=== PATIENT | male | born 1960 | race Caucasian/White ===

== ENCOUNTER 2017-10-26 01:24 | Day surgery (SDC) | payer OTHER ==
[~2017-10-26] VITALS: Ht 213.4 cm; Wt 91.0 kg
[~2017-10-26 01:24] MED LIST: AMLO5 PO; ASCO500; ASPI81EC PO; ATOR40TA PO; ATOR80 PO; CLOP75 PO; Co Q-10100 MG; DULO60; Ferrous Sulfat325 M2; Fish Oil 10001000 MG; GABA300 PO; Hydrocodone-Ap1 EA20 PO; LEVSOD50 PO; LOSARTAN POTAS100 MG PO; METO25ER PO; MULVITB; Magnesium500 MG; NITR.6SL SL; NORT25 PO; Naproxen250 MG; Pentasa500 MG; SF56 GM; TRAM50; VITAMIN D3400 UNIT; ZOLP5 PO; [UNRECOGNIZED DRUG - OTHER]
[2017-10-26] MEDS ORDERED: ISOMON20 PO (09:19)
== END 2017-10-26 11:15 | disposition home or self-care (01) ==
LOC: MHTC 01:24
PROC: 4A023N7 Measurement of Cardiac Sampling and Pressure, Left Heart, Percutaneous Approach (ICD-10-PCS; principal; 2017-10-26)
PROC: B211YZZ Fluoroscopy of Multiple Coronary Arteries using Other Contrast (ICD-10-PCS; principal; 2017-10-26)
DX: I25.119 Atherosclerotic heart disease of native coronary artery with unspecified angina pectoris (principal); E66.9 Obesity, unspecified; E78.00 Pure hypercholesterolemia, unspecified; E78.5 Hyperlipidemia, unspecified
CPT/HCPCS: 93454; 99152; 99153; C1769; C1894; J1644; J2250; J3010; J7030; Q9967

== ENCOUNTER 2018-10-19 09:10 | Day surgery (SDC) | payer OTHER ==
[~2018-10-19] VITALS: Ht 185.4 cm; Wt 193.6 kg
[~2018-10-19 09:10] MED LIST changes: +Coq-10100 MG PO; +DULO60 PO; +ERGO400 PO; +FER-IN-SOL15 MG/1 ML PO; +FOLI400 PO; +ISOMON20 PO; +Isosorbide Mono30 MG PO; +LO-DOSE ASPIRIN81 MG PO; +Lopressor 25 mg25 MG PO; +Magnesium500 M1 PO; +NAPR500EC PO; +Neurontin300 MG PO; +Nitrostat0.4 MG SL; +Norco 10-325 T1 EACH PO; +Nortriptyline H25 MG PO; +Omega 3 1,0001 EACH PO; +Oyster Shell C500 MG PO; +Pentasa500 MG PO; +Synthroid50 MCG PO; +TRAM50 PO; +VITAMIN C500 MG PO
--- NOTE | 2018-10-19 11:40 | NUR ---
10/19/18 1140 Xiomara Toribio GROUNDING PAD PLACED BUT NEVER USED.
== END 2018-10-19 12:06 | disposition home or self-care (01) ==
LOC: ORSCSDS 09:10
PROVIDERS: Internal Medicine Gastroenterology
PROC: 0DBE8ZX Excision of Large Intestine, Via Natural or Artificial Opening Endoscopic, Diagnostic (ICD-10-PCS; principal; 2018-10-19 10:30)
PROC: 0DBL8ZX Excision of Transverse Colon, Via Natural or Artificial Opening Endoscopic, Diagnostic (ICD-10-PCS; principal; 2018-10-19 10:30)
DX: K51.90 Ulcerative colitis, unspecified, without complications (principal); D12.3 Benign neoplasm of transverse colon; K62.89 Other specified diseases of anus and rectum; I10 Essential (primary) hypertension; F17.210 Nicotine dependence, cigarettes, uncomplicated; Z79.899 Other long term (current) drug therapy; Z79.82 Long term (current) use of aspirin
CPT/HCPCS: 88305; J2704; J7120

== ENCOUNTER 2020-07-17 09:42 | Day surgery (SDC) | payer OTHER ==
[~2020-07-17] VITALS: Ht 185.4 cm; Wt 102.6 kg
== END 2020-07-17 11:50 | disposition home or self-care (01) ==
LOC: ORSCSDS 09:42
PROVIDERS: Internal Medicine Gastroenterology
PROC: 0DBE8ZX Excision of Large Intestine, Via Natural or Artificial Opening Endoscopic, Diagnostic (ICD-10-PCS; principal; 2020-07-17 11:00)
DX: K51.90 Ulcerative colitis, unspecified, without complications (principal); Z86.010 Personal history of colon polyps; K63.5 Polyp of colon; K64.1 Second degree hemorrhoids; F17.210 Nicotine dependence, cigarettes, uncomplicated; G47.33 Obstructive sleep apnea (adult) (pediatric); I10 Essential (primary) hypertension; E78.5 Hyperlipidemia, unspecified; E03.9 Hypothyroidism, unspecified; Z79.899 Other long term (current) drug therapy
CPT/HCPCS: 88305; J2704; J7120

== ENCOUNTER 2021-10-08 10:31 | Day surgery (SDC) | payer OTHER ==
[~2021-10-08] VITALS: Ht 182.9 cm; Wt 102.2 kg
[~2021-10-08 10:31] MED LIST changes: +BACL10 PO; +Crestor40 MG PO; +DOXE10 PO; +LIDO700A20 TOP
== END 2021-10-08 12:53 | disposition home or self-care (01) ==
LOC: ORSCSDS 10:31
PROVIDERS: Internal Medicine Gastroenterology
PROC: 0DBN8ZX Excision of Sigmoid Colon, Via Natural or Artificial Opening Endoscopic, Diagnostic (ICD-10-PCS; principal; 2021-10-08 12:00)
PROC: 0DBL8ZX Excision of Transverse Colon, Via Natural or Artificial Opening Endoscopic, Diagnostic (ICD-10-PCS; principal; 2021-10-08 12:00)
PROC: 0DBM8ZX Excision of Descending Colon, Via Natural or Artificial Opening Endoscopic, Diagnostic (ICD-10-PCS; principal; 2021-10-08 12:00)
PROC: 0DBK8ZX Excision of Ascending Colon, Via Natural or Artificial Opening Endoscopic, Diagnostic (ICD-10-PCS; principal; 2021-10-08 12:00)
PROC: 0DBP8ZX Excision of Rectum, Via Natural or Artificial Opening Endoscopic, Diagnostic (ICD-10-PCS; principal; 2021-10-08 12:00)
DX: K51.90 Ulcerative colitis, unspecified, without complications (principal); K63.5 Polyp of colon; I10 Essential (primary) hypertension; I25.2 Old myocardial infarction; E78.5 Hyperlipidemia, unspecified; D50.9 Iron deficiency anemia, unspecified; K64.4 Residual hemorrhoidal skin tags; Z79.01 Long term (current) use of anticoagulants; I48.91 Unspecified atrial fibrillation; G47.33 Obstructive sleep apnea (adult) (pediatric); E66.9 Obesity, unspecified; F17.210 Nicotine dependence, cigarettes, uncomplicated; Z68.30 Body mass index [BMI] 30.0-30.9, adult; Z79.899 Other long term (current) drug therapy
CPT/HCPCS: 88305; J2704; J7120

== ENCOUNTER 2024-03-11 23:47 | Emergency (ER) | payer OTHER ==
[~2024-03-11] VITALS: Ht 182.9 cm; Wt 94.6 kg
[2024-03-12 00:26] LABS: BASOPHILS PERCENT AUTO 1 % (0-2); EOSINOPHILS ABSOLUTE AUTO 0.55 K/mm3 (0.00-0.68); EOSINOPHILS PERCENT AUTO 6 % (0-6); Hematocrit 45.7 % (37.0-53.0); Hemoglobin 15.6 g/dL (13.5-17.5); IMMATURE GRAN ABSOLUTE AUTO 0.04 K/mm3 (0.00-0.10); IMMATURE GRAN PERCENT AUTO 1 % (0-1); LYMPHOCYTES ABSOLUTE AUTO 1.92 K/mm3 (0.84-5.20); LYMPHOCYTES PERCENT AUTO 22 % (21-46); MONOCYTES ABSOLUTE AUTO 0.69 K/mm3 (0.16-1.47); MONOCYTES PERCENT AUTO 8 % (4-13); Mean Corpuscular HGB 31.3 pg (26.0-34.0); Mean Corpuscular HGB Conc 34.1 g/dL (31.5-36.5); Mean Corpuscular Volume 92 fL (80-100); Mean Platelet Volume 9.5 fL (9.1-12.4); NEUTROPHILS ABSOLUTE AUTO 5.32 K/mm3 (1.96-9.15); NEUTROPHILS PERCENT AUTO 62 % (41-73); Platelet Count 249 K/mm3 (150-400); RDW Coefficient Variation 13.1 % (11.7-14.2); RDW Standard Deviation 44.3 fL (35.1-46.3); Red Blood Cell Count 4.99 M/mm3 (4.30-5.90); White Blood Cell Count 8.62 K/mm3 (4.00-11.30)
[2024-03-12 00:55] LABS: Albumin, Blood 3.5 g/dL (3.4-5.0); Albumin/Globulin Ratio 1.2 (0.8-1.8); Bilirubin, Total 0.3 mg/dL (0.1-1.0); Bun/Creatinine Ratio 14.5 (12.0-20.0); Calcium, Blood 8.8 mg/dL (8.5-10.1); Creatinine, Blood 1.1 mg/dL (0.60-1.20); Potassium, Blood 3.8 mmol/L (3.5-5.5); Total Protein, Blood 6.5 g/dL (6.4-8.2)
[2024-03-12] MEDS ORDERED: Morphine Sulfate 4 MG/1 ML Injection IV ONE (01:50)
[2024-03-12] MEDS ORDERED: HYDROmorphone HCl/Pf 1MG SYR IV ONE (03:00)
[2024-03-12 04:55] LABS: Source, Urine Clean Catch
[2024-03-12 05:15] VITALS: BP 142/92
[2024-03-12 05:17] LABS: Bilirubin, Urine Neg (Neg); Blood, Urine Neg (Neg); Glucose Qualitative, Urine Neg (Neg); Ketones, Urine Neg (Neg); Leukocyte Esterase, Urine Neg (Neg); Nitrite, Urine Neg (Neg); Protein, Urine Neg (Neg); Urobilinogen, Urine NORM (Normal)
[2024-03-12] MEDS ORDERED: ACET500 PO (05:22)
[2024-03-12] MEDS ORDERED: MIRALAX17 GM PO (05:22)
[2024-03-12 05:26] LABS: Appearance, Urine Clear (Clear); Color, Urine Yellow (P-Yellow)
== END 2024-03-12 05:40 | disposition home or self-care (01) ==
LOC: ER 23:47
PROVIDERS: Emergency Medicine; Student in an Organized Health Care Education/Training Program
DX: K59.00 Constipation, unspecified (principal); R07.2 Precordial pain; R10.9 Unspecified abdominal pain; I10 Essential (primary) hypertension; E03.9 Hypothyroidism, unspecified; E78.5 Hyperlipidemia, unspecified; F17.210 Nicotine dependence, cigarettes, uncomplicated; Z79.02 Long term (current) use of antithrombotics/antiplatelets; Z79.899 Other long term (current) drug therapy; Z91.048 Other nonmedicinal substance allergy status; Z91.018 Allergy to other foods; Z88.8 Allergy status to other drugs, medicaments and biological substances
CPT/HCPCS: 71275; 74174; 80053; 81003; 84484; 85025; 93005; 93010; 96374-59; 96375; 99285-25; J1170; J2270; Q9967